=== PATIENT | female | born 1975 | race Caucasian/White ===

== ENCOUNTER → 2016-09-09 | Outpatient (CLI) | payer BC ==
[~2016-09-09] MED LIST: ACHD5005 PO; BIRTH CONTROL; CATHETER FLUSH 10 ML SYR IV PRN; CYCL10TA9 PO; D ME PO; DIPH25TA31 PO; ETON1VAG VG; HYDR-3714 PO; HYDR-3729 PO; IOHEXOL 350 MG/ML 100 ML (OMNIPAQUE 350) VIAL IV ONE; LEVO750T9 PO; METR500T PO; NAPR550T PO; NS 100 ML (IVPB) BAG IV ONE
--- NOTE | 2016-09-09 14:40 | Diagnostic Imaging Report ---
PROCEDURE: CT abdomen and pelvis with contrast. TECHNIQUE: Multiple contiguous axial images were obtained through the abdomen and pelvis after administration of intravenous contrast. INDICATION: Recurrent abdominal wall abscess. COMPARISON: Exam compared to 05/05/2016. FINDINGS: Previous percutaneous drainage catheter has been removed. Along its tract, there is some fluid extending to approach the skin surface AP depth of 4.8 cm with maximal transverse dimensions of 2.7 cm. Abscess could not be excluded. There is some adjacent subcutaneous edema. The rectus sheath components just deep to the collection appear slightly thickened but without obvious fluid. There are chronic or recurrent inflammatory changes adjacent to right lower quadrant bowel loops but this itself is improved from the prior study. There is no evidence for a bowel obstruction and no intraperitoneal or retroperitoneal abscess. Liver, spleen, adrenals, and pancreas are unremarkable. The unobstructed kidneys are normal. Uterus, adnexa, and urinary bladder are normal. IMPRESSION: Recurrence of fluid collection within the subcutaneous fat superficially, approaching the skin surface. Given the adjacent edema, abscess could not be excluded. This is along the course of the previously placed drainage catheter having been removed in the interval. The right lower quadrant intraperitoneal contents revealed improvements in regional inflammatory change. No intraperitoneal or retroperitoneal fluid collection. No bowel, biliary, or urinary tract obstruction. Dictated by: Dictated on workstation # [id number]
== END ==
LOC: RAD 12:02
PROVIDERS: ATTEND Internal Medicine
DX: L02.211 Cutaneous abscess of abdominal wall (principal); K50.914 Crohn's disease, unspecified, with abscess
CPT/HCPCS: 74177

== ENCOUNTER → 2017-04-27 | Outpatient (CLI) | payer BC ==
[~2017-04-27] MED LIST changes: -CATHETER FLUSH 10 ML SYR IV PRN; -IOHEXOL 350 MG/ML 100 ML (OMNIPAQUE 350) VIAL IV ONE; -NS 100 ML (IVPB) BAG IV ONE
--- NOTE | 2017-04-28 17:39 | Diagnostic Imaging Report ---
EXAMINATION: Bilateral digital screening mammogram with CAD. The current study was also evaluated with a Computer Aided Detection (CAD) system. INDICATION: Screening. No current complaints stated on the questionnaire. COMPARISON: 12/15/15. FINDINGS: The breasts are composed of heterogeneously dense parenchyma which may decrease mammographic sensitivity. No mass, architectural distortion or suspicious calcification is seen. Allowing for technique and positional differences, no suspicious change is seen. IMPRESSION: No significant change. ACR BI-RADS Category 2: Benign findings. Result letter will be mailed to the patient. Note: At least 10% of breast cancer is not imaged by mammography. Dictated by: Dictated on workstation # [id number]
== END ==
LOC: RAD 10:08
PROVIDERS: ATTEND Nurse Practitioner
DX: Z12.31 Encounter for screening mammogram for malignant neoplasm of breast (principal)
CPT/HCPCS: 77067

== ENCOUNTER → 2018-03-17 | Outpatient (CLI) | payer BC ==
--- NOTE | 2018-03-20 09:53 | Diagnostic Imaging Report ---
INDICATION: Routine screening. COMPARISON: 04/27/2017 and 11/28/2015. TECHNIQUE: 2D and 3D bilateral screening mammography was performed with CAD. FINDINGS: Scattered fibroglandular densities are identified bilaterally. The parenchymal pattern is stable. No mass or malignant appearing microcalcifications are seen. The axillae are unremarkable. IMPRESSION: No mammographic features suspicious for malignancy are identified. ACR BI-RADS Category 1: Negative. Result letter will be mailed to the patient. Note: At least 10% of breast cancer is not imaged by mammography. Dictated by: Dictated on workstation # [id number]
== END ==
LOC: RAD 15:51
PROVIDERS: ATTEND Nurse Practitioner
DX: Z12.31 Encounter for screening mammogram for malignant neoplasm of breast (principal)
CPT/HCPCS: 77067

== ENCOUNTER → 2019-04-06 | Outpatient (CLI) | payer BC ==
--- NOTE | 2019-04-09 09:28 | Diagnostic Imaging Report ---
INDICATION: Routine screening. COMPARISON: 03/17/2018 and 04/27/2017. TECHNIQUE: 2D and 3D bilateral screening mammography was performed with CAD. FINDINGS: Scattered fibroglandular densities are identified bilaterally. The parenchymal pattern is stable. No mass or malignant appearing microcalcifications are seen. The axillae are unremarkable. IMPRESSION: No mammographic features suspicious for malignancy are identified. ACR BI-RADS Category 1: Negative. Result letter will be mailed to the patient. Note: At least 10% of breast cancer is not imaged by mammography. Dictated by: Dictated on workstation # [id number]
== END ==
LOC: RAD 15:20
PROVIDERS: ATTEND Obstetrics & Gynecology
DX: Z12.31 Encounter for screening mammogram for malignant neoplasm of breast (principal)
CPT/HCPCS: 77067

== ENCOUNTER 2019-08-11 09:20 | Emergency (ER) | payer BC ==
[~2019-08-11] VITALS: Ht 162 cm; Wt 8.0 kg
[2019-08-11] MEDS ORDERED: HUMERA (09:47)
[2019-08-11 09:48] LABS: BASOPHILS % (AUTO) 1 % (0-10); EOSINOPHILS # (AUTO) 0.3 10^3/uL (0.0-0.3); EOSINOPHILS % (AUTO) 4 % (0-10); HEMATOCRIT 35 % (35-52); HEMOGLOBIN 11.8 G/DL (11.5-16.0); LYMPHOCYTES # (AUTO) 2.4 X 10^3 (1.0-4.0); LYMPHOCYTES % (AUTO) 33 % (12-44); MEAN CORPUSCULAR HEMOGLOBIN 30 PG (25-34); MEAN CORPUSCULAR HGB CONC 33 G/DL (32-36); MEAN CORPUSCULAR VOLUME 89 FL (80-99); MEAN PLATELET VOLUME 11.9 FL (7.4-10.4); MONOCYTES # (AUTO) 0.5 X 10^3 (0.0-1.0); MONOCYTES % (AUTO) 8 % (0-12); NEUTROPHILS % (AUTO) 55 % (42-75); PLATELET COUNT 282 10^3/uL (130-400); WHITE BLOOD COUNT 7.2 10^3/uL (4.3-11.0)
[2019-08-11 09:49] LABS: BILIRUBIN,URINE NEGATIVE (NEGATIVE); CLARITY,URINE CLOUDY; COLOR,URINE RED; GLUCOSE, URINE (UA) NEGATIVE (NEGATIVE); KETONES,URINE NEGATIVE (NEGATIVE); LEUKOCYTE ESTERASE ,URINE NEGATIVE (NEGATIVE); NITRITE,URINE NEGATIVE (NEGATIVE); PROTEIN,URINE 2+ (NEGATIVE)
[2019-08-11 09:55] LABS: INR 0.9 (0.8-1.4); PROTHROMBIN TIME PATIENT 12.5 SEC (12.2-14.7)
[2019-08-11 09:59] LABS: ALANINE AMINOTRANSFERASE 29 U/L (0-55); ALBUMIN 4.1 GM/DL (3.2-4.5); ALKALINE PHOSPHATASE 62 U/L (40-136); BILIRUBIN,TOTAL 0.4 MG/DL (0.1-1.0); BUN/CREATININE RATIO 15; CALCIUM 8.9 MG/DL (8.5-10.1); CARBON DIOXIDE 19 MMOL/L (21-32); CHLORIDE 108 MMOL/L (98-107); GFR ESTIMATED > 60; GLUCOSE 116 MG/DL (70-105); POTASSIUM 4.2 MMOL/L (3.6-5.0); SODIUM 140 MMOL/L (135-145)
[2019-08-11 10:14] LABS: BACTERIA,URINE NEGATIVE /HPF; RBC,URINE TNTC /HPF
--- NOTE | 2019-08-11 10:15 | ED GU-Female ---
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 WAS INSTRUCTED TO TAKE OUT NUVA RING ON TUESDAY BY DR DE LEON. Nursing Sepsis Screen: No Definite Risk Source: patient Exam Limitations: no limitations History of Present Illness Date Seen by Provider: Aug 11, 2019 Time Seen by Provider: 09:35 Initial Comments Patient resents to ER by private conveyance with her and chief complaint for the past 2 weeks she's been having some vaginal bleeding progressively worsening now the last several days she's been having heavy bleeding with large clots and for the past 24 hours she is been going through a super tampon and pad 4 to 5 times overnight and this morning once every hour. She is on Humira for Crohn's. She denies dysuria. She's never had an STD. She had lab on showing a hemoglobin of 11.7. No recent history of anemia, blood clots or blood thinners. She felt some pressure in her right ear. No fevers chills nausea v omiting. She has an appointment on with Dr. De Leon, gynecology to work this up. She took her NuvaRing out about 2 days ago. She is a long- standing monogamous relationship and declines STD testing. Last intercourse was 3 weeks ago. Allergies and Home Medications Allergies Coded Allergies: amoxicillin (Unverified Allergy, Intermediate, 01/21/14) Penicillins (Unverified Allergy, Unknown, 09/27/14) Home Medications Etonogestrel/Ethinyl Estradiol 1 Each Vag.ring, 1 VAG RING VG MONTHLY, (Reported) Medroxyprogesterone Acetate 10 Mg Tablet, 10 MG PO DAILY Prescribed by: KINZA HERNANDEZ on 08/11/19 1104 Patient Home Medication List Home Medication List Reviewed: Yes Review of Systems Review of Systems Constitutional: No chills, No fever, No malaise EENTM: No ear discharge, No ear pain Respiratory: No cough, No short of breath, No wheezing Cardiovascular: No chest pain, No Hx of Intervention, No palpitations Gastrointestinal: No abdominal pain, No constipation, No nausea, No vomiting Genitourinary: see HPI Musculoskeletal: No back pain, No joint pain Hematologic/Lymphatic: Denies Anemia, Denies Blood Clots All Other Systemes Reviewed Negative Unless Noted: Yes Past Bhcpiqs-Dxpjpe-Rmgsfb Hx Patient Social History Alcohol Use: Rarely Uses Number of Drinks Today: II Alcohol Beverage of Choice: Other Recreational Drug Use: No Smoking Status: Never a Smoker Recent Foreign Travel: No Contact w/Someone Who Travel: No Recent Infectious Disease Expo: No Recent Hopitalizations: No Physical Abuse: No Sexual Abuse: No Immunizations Up To Date Tetanus Booster (TDap): More than 5yrs PED Vaccines UTD: Yes Seasonal Allergies Seasonal Allergies: Yes Past Medical History Surgeries: Yes Gallbladder Respiratory: No Currently Using CPAP: No Currently Using BIPAP: No Cardiac: No Neurological: No Reproductive Disorders: No Female Reproductive Disorders: Denies Sexually Transmitted Disease: No HIV/AIDS: No Gastrointestinal: Yes Gall Bladder Disease, Irritable Bowel Musculoskeletal: Yes (BACK PAIN- SEE CHIROPRACTOR) Endocrine: No Cancer: No Psychosocial: No Integumentary: No Blood Disorders: No (HX OF ANEMIA WHEN YOUNGER) Family Medical History Alcoholism 19 FATHER PATERNAL GRANDFATHER PATERNAL GRANDMOTHER MATERNAL GRANDFATHER MATERNAL GRANDMOTHER 19 MOTHER Arthritis 19 MOTHER Asthma 19 MOTHER (SISTERS, ONE OF LUNG CANCER, COPD) Cardiovascular disease MATERNAL GRANDMOTHER 19 MOTHER Cataracts 19 MOTHER Completed stroke 19 FATHER Coronary thrombosis G8 BROTHER 19 MOTHER (LEG) Diabetes mellitus MATERNAL GRANDMOTHER Drug abuse 19 FATHER G8 BROTHER G8 BROTHER 19 MOTHER Gastroenteritis 19 FATHER (CHRON'S ) Hypercholesterolemia 19 MOTHER Hypertension MATERNAL GRANDMOTHER Myocardial infarction MATERNAL GRANDMOTHER 19 MOTHER Prostate cancer Psychosocial problem MATERNAL GRANDMOTHER 19 MOTHER (HER BROTHER) Respiratory disorder 19 MOTHER Thyroid disease 19 MOTHER Tuberculosis 19 MOTHER Physical Exam Vital Signs Vital Signs - First Documented 08/11/19 09:25 Temp 36.9 Pulse 99 Resp 18 B/P (MAP) 144/93 (110) Pulse Ox 98 Capillary Refill : Less Than 3 Seconds Height, Weight, BMI Height: 5'4.00" Weight: 179lbs. 3.0oz. 81.341515fh; 3.00 BMI Method:Stated General Appearance: WD/WN, no apparent distress HEENT: PERRL/EOMI, pharynx normal, TM abnormal (R) (bilateral tympanic membranes with clear effusion and mild bulging but no erythema or injection.), TM abnormal (L) Neck: non-tender, full range of motion, supple, normal inspection Cardiovascular: normal peripheral pulses, regular rate, rhythm Respiratory: no respiratory distress, no accessory muscle use Gastrointestinal: normal bowel sounds, non tender, soft Neurologic/Psychiatric: alert, normal mood/affect, oriented x 3 Skin: normal color, warm/dry Progress/Results/Core Measures Suspected Sepsis Recent Fever Within 48 Hours: No Infection Criteria Present: None New/Unexplained Altered Menta: No Sepsis Screen: No Definite Risk SIRS Temperature: Pulse: 99 Respiratory Rate: 18 Laboratory Tests 08/11/19 09:30: White Blood Count 7.2 Blood Pressure 144 /93 Mean: 110 Laboratory Tests 08/11/19 09:30: Creatinine 0.80, INR Comment 0.9, Platelet Count 282, Total Bilirubin 0.4 Results/Orders Lab Results Laboratory Tests Test 08/11/19 09:30 Range/Units White Blood Count 7.2 4.3-11.0 10^3/uL Red Blood Count 3.99 L 4.35-5.85 10^6/uL Hemoglobin 11.8 11.5-16.0 G/DL Hematocrit 35 35-52 % Mean Corpuscular Volume 89 80-99 FL Mean Corpuscular Hemoglobin 30 25-34 PG Mean Corpuscular Hemoglobin Concent 33 32-36 G/DL Red Cell Distribution Width 13.0 10.0-14.5 % Platelet Count 282 130-400 10^3/uL Mean Platelet Volume 11.9 H 7.4-10.4 FL Neutrophils (%) (Auto) 55 42-75 % Lymphocytes (%) (Auto) 33 12-44 % Monocytes (%) (Auto) 8 0-12 % Eosinophils (%) (Auto) 4 0-10 % Basophils (%) (Auto) 1 0-10 % Neutrophils # (Auto) 4.0 1.8-7.8 X 10^3 Lymphocytes # (Auto) 2.4 1.0-4.0 X 10^3 Monocytes # (Auto) 0.5 0.0-1.0 X 10^3 Eosinophils # (Auto) 0.3 0.0-0.3 10^3/uL Basophils # (Auto) 0.0 0.0-0.1 10^3/uL Prothrombin Time 12.5 12.2-14.7 SEC INR Comment 0.9 0.8-1.4 Activated Partial Thromboplast Time 24 24-35 SEC Urine Color RED H Urine Clarity CLOUDY Urine pH 5.0 5-9 Urine Specific [place] >=1.030 1.016-1.022 Urine Protein 2+ H NEGATIVE Urine Glucose (UA) NEGATIVE NEGATIVE Urine Ketones NEGATIVE NEGATIVE Urine Nitrite NEGATIVE NEGATIVE Urine Bilirubin NEGATIVE NEGATIVE Urine Urobilinogen 0.2 < = 1.0 MG/DL Urine Leukocyte Esterase NEGATIVE NEGATIVE Urine RBC (Auto) 3+ H NEGATIVE Urine RBC TNTC H /HPF Urine WBC NONE /HPF Urine Crystals NONE /LPF Urine Bacteria NEGATIVE /HPF Urine Casts NONE /LPF Urine Mucus NEGATIVE /LPF Urine Culture Indicated NO Sodium Level 140 135-145 MMOL/L Potassium Level 4.2 3.6-5.0 MMOL/L Chloride Level 108 H 98-107 MMOL/L Carbon Dioxide Level 19 L 21-32 MMOL/L Anion Gap 13 5-14 MMOL/L Blood Urea Nitrogen 12 7-18 MG/DL Creatinine 0.80 0.60-1.30 MG/DL Estimat Glomerular Filtration Rate > 60 BUN/Creatinine Ratio 15 Glucose Level 116 H 70-105 MG/DL Calcium Level 8.9 8.5-10.1 MG/DL Corrected Calcium 8.8 8.5-10.1 MG/DL Total Bilirubin 0.4 0.1-1.0 MG/DL Aspartate Amino Transf (AST/SGOT) 30 5-34 U/L Alanine Aminotransferase (ALT/SGPT) 29 0-55 U/L Alkaline Phosphatase 62 40-136 U/L Total Protein 7.0 6.4-8.2 GM/DL Albumin 4.1 3.2-4.5 GM/DL My Orders Orders - KINZA HERNANDEZ Ua Culture If Indicated (08/11/19 09:24) Urine Bedside (08/11/19 09:24) Cbc With Automated Diff (08/11/19 09:41) Comprehensive Metabolic Panel (08/11/19 09:41) Protime With Inr (08/11/19 09:41) Partial Thromboplastin Time (08/11/19 09:41) Vital Signs/I&O 08/11/19 09:25 Temp 36.9 Pulse 99 Resp 18 B/P (MAP) 144/93 (110) Pulse Ox 98 Capillary Refill : Less Than 3 Seconds Blood Pressure Mean: 110 Progress Note : Time: 10:55 Progress Note The patient has declined STD testing. Given her risk factors being low that would be fine. Plan consultation with transition manager OB and we'll give a dose of Depo- Provera if we have it. If not we will give her a prescription and she can self administer or we have her come back if the ER administer it. Ultrasound is not necessary or available today. Consults Consults : Consulting Physician: GRAHAM TORRES DO Consults Notes Discussed case lab findings and he recommends a shot of Depo-Provera and put her on Provera pills 10 mg daily until she sees Dr. De Leon. Departure Impression Primary Impression: Vaginal bleeding, abnormal Additional Impression: Acute serous otitis media of both ears without rupture Disposition: HOME, SELF-CARE Condition: Stable Departure-Patient Inst. Decision time for Depature: 10:56 Referrals: CYNDY CARR MD (PCP/Family) Primary Care Physician KENNY DE LEON DO Patient Instructions: IRREGULAR VAGINAL BLEEDING, Serous Otitis Media Add. Discharge Instructions: Provera 10 mg tablets once daily until you see Dr. De Leon. Return to the ER if you're having chest pain or shortness of breath. Avoid NSAIDs such as ibuprofen, naproxen, Aleve. Keep follow-up appointment with Dr. De Leon. All discharge instructions reviewed with patient and/or family. Voiced understanding. Scripts Medroxyprogesterone Acetate (Depo-Provera) 150 Mg/1 Ml Syringe 150 MG IM ONCE, #1 SYRINGE 0 Refills Prov: KINZA HERNANDEZ 08/11/19 Medroxyprogesterone Acetate (Provera) 10 Mg Tablet 10 MG PO DAILY for 14 Days, #14 TAB 0 Refills Prov: KINZA HERNANDEZ 08/11/19 Copy Copies To 1: KENNY DE LEON TITUS J Aug 11, 2019 10:15
[2019-08-11] MEDS ORDERED: MEDR10TA PO (11:04)
[2019-08-11] MEDS ORDERED: MEDR150D8 IM (11:11)
[2019-08-11 11:19] VITALS: BP 144/93
== END 2019-08-11 11:19 | disposition home or self-care (01) ==
LOC: EDUNIT# 09:20 → ER 09:21
DX: N93.9 Abnormal uterine and vaginal bleeding, unspecified (principal); H65.03 Acute serous otitis media, bilateral; K58.9 Irritable bowel syndrome, unspecified; D64.9 Anemia, unspecified; Z88.0 Allergy status to penicillin; Z79.52 Long term (current) use of systemic steroids; Z82.49 Family history of ischemic heart disease and other diseases of the circulatory system; Z80.42 Family history of malignant neoplasm of prostate
CPT/HCPCS: 36415; 80053; 81000; 84703; 85025; 85610; 85730

== ENCOUNTER → 2019-08-20 | Outpatient (CLI) | payer BC ==
[~2019-08-20] MED LIST changes: +HUMERA; +MEDR10TA PO; +MEDR150D8 IM
--- NOTE | 2019-08-20 17:38 | Diagnostic Imaging Report ---
PROCEDURE: US Non-ob pelvis comp/trans. TECHNIQUE: Multiple realtime grayscale images were obtained of the pelvis in various projections endovaginally. Transabdominal and color Doppler imaging was also utilized. Transabdominal imaging was also performed. INDICATION: Dysfunctional uterine bleeding. COMPARISON: None available. FINDINGS: The uterus measures 7.7 x 4.3 x 3.3 cm. The myometrium is normal in echogenicity without discrete mass. The endometrium measures up to 0.6 cm where visualized, and is normal in echogenicity. Trace simple-appearing fluid is present within the endometrial canal at the level of the mid uterine body. The right ovary measures 2.7 x 1.7 x 2.3 cm. The left ovary measures 2.3 x 2.5 x 2.0 cm. Both ovaries are physiologic in appearance. Blood flow is seen in both ovaries on color doppler imaging. No suspicious adnexal mass or fluid collection. No free pelvic fluid. IMPRESSION: 1. Normal endometrial thickness measuring 0.6 cm. Trace fluid within the endometrial canal may relate to patient's reported bleeding. 2. No fibroid or other myometrial mass. 3. Physiologic appearance of the ovaries. Dictated by: Dictated on workstation # [id number]
== END ==
LOC: RAD 14:51
PROVIDERS: ATTEND Obstetrics & Gynecology
DX: N93.8 Other specified abnormal uterine and vaginal bleeding (principal)
CPT/HCPCS: 76830; 76856

== ENCOUNTER 2019-09-04 05:50 | Outpatient (CLI) | payer BC ==
[~2019-09-04] VITALS: Ht 162 cm; Wt 85.4 kg
[2019-09-04] MEDS ORDERED: MULT1CAP27 PO (13:34)
[2019-09-04] MEDS ORDERED: LORA10TA7 PO (13:35)
== END 2019-09-04 13:52 | disposition home or self-care (01) ==
LOC: PREOP 05:50
PROVIDERS: ATTEND Obstetrics & Gynecology
DX: Z01.818 Encounter for other preprocedural examination (principal)

== ENCOUNTER 2019-09-11 08:32 | Day surgery (SDC) | payer BC ==
[2019-09-11] VITALS (11 sets, daily range): BP systolic 92–118; BP diastolic 63–84
[~2019-09-11] VITALS: Ht 162 cm; Wt 85.4 kg
[~2019-09-11 08:32] MED LIST changes: +LORA10TA7 PO; +MULT1CAP27 PO
[2019-09-11] MEDS ORDERED: LACTATED RINGERS 1,000 ML IV PRN (08:57)
[2019-09-11] MEDS ORDERED: metroNIDAZOLE 500MG/100ML IVPB 100 ML IV ONE (09:00)
[2019-09-11] MEDS ORDERED: ceFAZolin INJECTION 1,000 MG in WATER (STERILE) FOR INJECTION 10 ML IV ONE (09:00)
[2019-09-11] MEDS ORDERED: ONDANSETRON 4 MG/2 ML (SDV) Z0FRAN ONE ×2 (09:04→09:36)
[2019-09-11] MEDS ORDERED: DEXAMETHASONE 10 MG/ML (DECADRON) 1 ML VIAL ONE (09:04)
[2019-09-11] MEDS ORDERED: SEVOFLURANE (ULTANE) 15 ML INHAL SOLN ONE (09:04)
[2019-09-11] MEDS ORDERED: LIDOCAINE PF 2% 5 ML (XYLOCAINE) VIAL ONE (09:04)
[2019-09-11] MEDS ORDERED: proPOfol 200 MG/20 ML (DIPRIVAN) VIAL IV ONE ×2 (09:04→10:35)
[2019-09-11] MEDS ORDERED: MIDAZOLAM 2 MG/2 ML (VERSED) VIAL ONE (09:05)
[2019-09-11] MEDS ORDERED: fentaNYL INJECTION 100 MCG/2 ML AMP ONE (09:05)
[2019-09-11] MEDS ORDERED: SCOPOLAMINE 1.5 MG (TRANSDERM-SCOP) PATCH ONE (09:36)
[2019-09-11] MEDS ORDERED: FAMOTIDINE 20MG/2ML IV (PEPCID) ONE (09:36)
[2019-09-11] MEDS ORDERED: FAMOTIDINE 20MG/2ML IV (PEPCID) IV ONE (09:45)
[2019-09-11] MEDS ORDERED: SCOPOLAMINE 1.5 MG (TRANSDERM-SCOP) PATCH TOP ONE (09:45)
[2019-09-11] MEDS ORDERED: ONDANSETRON 4 MG/2 ML (SDV) Z0FRAN IV ONE (09:45)
--- NOTE | 2019-09-11 10:13 | Progress Note-Pre Operative ---
Pre-Operative Progress Note H&P Reviewed The H&P was reviewed, patient examined and no changes noted. Date Seen by Provider: Sep 11, 2019 Time Seen by Provider: 09:50 Date H&P Reviewed: Sep 11, 2019 Time H&P Reviewed: 09:45 Pre-Operative Diagnosis: thickened endometrium, menorrhagia KENNY DE LEON DO Sep 11, 2019 10:13
[2019-09-11] MEDS ORDERED: ROCURONIUM 10 MG/ML 5 ML SYRINGE IV ONE (10:35)
[2019-09-11] MEDS ORDERED: NEOSTIGMINE 3 MG/3 ML VIAL ONE (10:42)
[2019-09-11] MEDS ORDERED: KETOROLAC 30 MG/ML VIAL ONE (10:42)
[2019-09-11] MEDS ORDERED: GLYCOPYRROLATE 0.2 MG/ML (ROBINUL) 2 ML VIAL ONE (10:42)
[2019-09-11] MEDS ORDERED: D5 LR IV SOLUTION 1,000 ML IV SCH (10:55)
[2019-09-11] MEDS ORDERED: KETOROLAC 30 MG/ML VIAL IVP ONE (11:00)
[2019-09-11] MEDS ORDERED: ACETAMINOPHEN 500 MG TAB (TYLENOL) PO PRN (11:00)
[2019-09-11] MEDS ORDERED: ONDANSETRON 4 MG/2 ML (SDV) Z0FRAN IVP PRN ×2 (11:00)
[2019-09-11] MEDS ORDERED: HYDROmorphone 2 MG/ML VIAL (DILAUDID) IV ONE (11:00)
--- NOTE | 2019-09-11 11:00 | Operative Report ---
Operative Report Date of Procedure/Surgery Sep 11, 2019 Surgeon (s) KENNY DE LEON DO Marine Underwriter (s): NA Post-Operative Diagnosis intrauterine synechiae menorrhagia no evidence of uterine perforation Procedure Performed Hysteroscopy, Nila endometrial ablation diagnostic laparoscopy Description of Procedure Anesthesia Type: General Estimated blood loss (mL): minimal Specimen(s) collected/removed NA Findings of the Procedure proliferative appearing endometrium, uterus approximately 5.5 cm in length After ablation, appeared to see adhesions at the fundus that were not noted before. However, there was good distention of the uterus. Despite this, there seemed to be more fluid deficit than accounted for, so a diagnostic laparoscopy was done. Upon laparoscopy, there was not excessive fluid in the pelvis (appeared physiologic) and there was not a perforation in the uterus. There was a spot at the fundus that appeared to be bruised but not perforated. normal uterus with normal tubes and ovaries. Allergies and Home Medications Allergies Coded Allergies: amoxicillin (Unverified Allergy, Intermediate, 01/21/14) Penicillins (Unverified Allergy, Unknown, UNSURE OF RECTION, 09/04/19) Home Medications Loratadine 10 Mg Tablet, 10 MG PO DAILY, (Reported) Multivitamin 1 Each Capsule, 1 EACH PO DAILY, (Reported) KENNY DE LEON DO Sep 11, 2019 11:00
[2019-09-11] MEDS ORDERED: IBUPROFEN 600 MG (MOTRIN) TAB PO SCH (12:00)
[2019-09-11] MEDS ORDERED: IBUP-844 PO (12:48)
[2019-09-11] MEDS ORDERED: ACET-93 PO (12:48)
[2019-09-11] MEDS ORDERED: OXC5T PO (12:48)
--- NOTE | 2019-09-11 12:50 | Discharge Inst-Women's Service ---
Discharge Inst-Women's Serv Depart Medication/Instructions New, Converted or Re-Newed RX: RX on Chart Final Diagnosis menorrhagia intrauterine synechiae Consults/Follow Up Additional Follow Up: Yes ([address] Cobian) Activity Activity: Activity as Tolerated Driving Instructions: No Driving for 24 Hours NO SMOKING: NO SMOKING Nothing Inside Vagina: No Douching, No Kline, No Tampons Diet Discharge Diet: Eat Small Frequent Meals Symptoms to Report to : Bleeding Excessive, Pain Increased, Fever Over 101 Degrees F, Vaginal Bleeding Increase, Cramps in Feet or Legs, Vaginal Discharge Foul For Any Problems or Questions: Contact Your Physician Skin/Wound Care Infection Signs and Symptoms: Increased Redness, Foul Odor of Wound, Increased Drainage, Skin Itchy or Has a Rash, Increased Swelling, Temperature Above 101 F Operative Area Clean and Dry: Keep Incision Clean/Dry Stitches/Rj/Dermabond: Dermabond Bathing Instructions: KENNY Bai DO Sep 11, 2019 12:49
--- NOTE | 2019-09-11 13:30 | NUR ---
PATIENT UP TO BATHROOM AND VOMITED AT THIS TIME WITH SOME NAUSEA, THIS RN TO GIVE ZOFRAN 4MG IV. 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
--- NOTE | 2019-09-12 07:07 | Anesthesia-General Post-Op ---
General Patient Condition Mental Status/LOC: Same as Preop Cardiovascular: Satisfactory Nausea/Vomiting: Absent Respiratory: Satisfactory Pain: Controlled Complications: Absent Post Op Complications Complications None Follow Up Care/Instructions Patient Instructions None needed. Anesthesia/Patient Condition Patient Condition Patient is doing well, no complaints, stable vital signs, no apparent adverse anesthesia problems. No complications reported per nursing. D/C home per [facility] [place] Criteria: Yes TOMMY GONG CRNA Sep 12, 2019 07:07
== END 2019-09-11 14:15 | disposition home or self-care (01) ==
LOC: SDC 08:32
PROVIDERS: ATTEND Obstetrics & Gynecology
DX: N85.6 Intrauterine synechiae (principal); N92.0 Excessive and frequent menstruation with regular cycle; Z88.0 Allergy status to penicillin; Z88.1 Allergy status to other antibiotic agents; Z82.5 Family history of asthma and other chronic lower respiratory diseases; Z83.3 Family history of diabetes mellitus; Z82.49 Family history of ischemic heart disease and other diseases of the circulatory system; Z90.49 Acquired absence of other specified parts of digestive tract
CPT/HCPCS: 84703; 87081; 94664

== ENCOUNTER → 2020-06-23 | Outpatient (CLI) | payer BC ==
[~2020-06-23] MED LIST changes: +ACET-93 PO; +IBUP-844 PO; +OXC5T PO
--- NOTE | 2020-06-23 11:00 | Diagnostic Imaging Report ---
EXAMINATION: Bilateral mammograms. INDICATION: Screening. COMPARISON: 04/06/2019, 03/17/2018, and 04/27/2017. TECHNIQUE: Screening digital mammography was performed bilaterally with a Computer Aided Detection (CAD) system. FINDINGS: There are scattered fibroglandular densities bilaterally. There are a few benign type calcifications. There is no dominant mass, spiculated lesion, or suspicious calcification identified. The skin, nipples, and axillae are unremarkable. IMPRESSION: Benign findings as above. ACR BI-RADS Category 2: Benign findings. Result letter will be mailed to the patient. Note: At least 10% of breast cancer is not imaged by mammography. Dictated by: Dictated on workstation # [id number]
== END ==
LOC: RAD 09:09
PROVIDERS: ATTEND Family Medicine
DX: Z12.31 Encounter for screening mammogram for malignant neoplasm of breast (principal)
CPT/HCPCS: 77063; 77067

== ENCOUNTER → 2021-06-01 | Outpatient (CLI) | payer BC ==
[~2021-06-01] MED LIST changes: +ACETAMINOPHEN 500 MG TAB (TYLENOL) PO PRN; +CASIRIVIMAB/IMDEVIMAB 1,200 MG in NS (IVPB) 250 ML IV ONE; +EPINEPHrine INJECTION 1 MG/ML AMP IM PRN; +ONDANSETRON 4 MG/2 ML (SDV) Z0FRAN IV PRN; +diphenhydrAMINE 50 MG/ML INJ (BENADRYL) IV PRN
[2021-06-01 12:47] VITALS: BP 140/98
[2021-06-01 14:19] VITALS: BP 157/98
== END ==
LOC: INFUSION 12:35
PROVIDERS: ATTEND Nurse Practitioner Family
DX: U07.1 COVID-19 (principal)

== ENCOUNTER → 2021-06-24 | Outpatient (CLI) | payer BC ==
[~2021-06-24] MED LIST changes: -ACETAMINOPHEN 500 MG TAB (TYLENOL) PO PRN; -CASIRIVIMAB/IMDEVIMAB 1,200 MG in NS (IVPB) 250 ML IV ONE; -EPINEPHrine INJECTION 1 MG/ML AMP IM PRN; -ONDANSETRON 4 MG/2 ML (SDV) Z0FRAN IV PRN; -diphenhydrAMINE 50 MG/ML INJ (BENADRYL) IV PRN
--- NOTE | 2021-06-24 12:29 | Diagnostic Imaging Report ---
INDICATION: Routine screening. COMPARISON: 06/23/2020 and 04/06/2019. TECHNIQUE: 2D and 3D bilateral screening mammography was performed with CAD. FINDINGS: Scattered fibroglandular densities are identified bilaterally. The parenchymal pattern appears stable. No mass or malignant-appearing microcalcifications are seen. The axillae are unremarkable. IMPRESSION: No mammographic features suspicious for malignancy are identified. ACR BI-RADS Category 1: Negative. Result letter will be mailed to the patient. Note: At least 10% of breast cancer is not imaged by mammography. Dictated by: Dictated on workstation # [id number]
== END ==
LOC: RAD 10:45
PROVIDERS: ATTEND Obstetrics & Gynecology
DX: Z12.31 Encounter for screening mammogram for malignant neoplasm of breast (principal)
CPT/HCPCS: 77063; 77067

== ENCOUNTER → 2022-06-25 | Outpatient (CLI) | payer BC ==
--- NOTE | 2022-06-28 12:33 | Diagnostic Imaging Report ---
INDICATION: Routine screening. COMPARISON: 06/24/2021 and 06/23/2020. TECHNIQUE: 2D and 3D bilateral screening mammography was performed with CAD. FINDINGS: Both breasts are heterogeneously dense, limiting the sensitivity of mammography. There are benign calcifications throughout both breasts. No mass or malignant-appearing microcalcifications are seen. The axillae are unremarkable. IMPRESSION: No mammographic features suspicious for malignancy are identified. ACR BI-RADS Category 2: Benign findings. Result letter will be mailed to the patient. Note: At least 10% of breast cancer is not imaged by mammography. Dictated on workstation # [id number]
== END ==
LOC: RAD 11:15
PROVIDERS: ATTEND Family Medicine
DX: Z12.31 Encounter for screening mammogram for malignant neoplasm of breast (principal)
CPT/HCPCS: 77063; 77067

== ENCOUNTER → 2022-10-26 | Outpatient (CLI) | payer BC ==
[2022-10-26 18:20] LABS: BASOPHILS # (AUTO) 0.1 10^3/uL (0.0-0.1); BASOPHILS % (AUTO) 1 % (0-10); EOSINOPHILS # (AUTO) 0.3 10^3/uL (0.0-0.3); EOSINOPHILS % (AUTO) 3 % (0-10); HEMATOCRIT 44 % (35-52); HEMOGLOBIN 15.1 g/dL (11.5-16.0); LYMPHOCYTES # (AUTO) 3.3 10^3/uL (1.0-4.0); LYMPHOCYTES % (AUTO) 35 % (12-44); MEAN CORPUSCULAR HEMOGLOBIN 30 pg (25-34); MEAN CORPUSCULAR HGB CONC 35 g/dL (32-36); MEAN CORPUSCULAR VOLUME 86 fL (80-99); MEAN PLATELET VOLUME 11.3 fL (9.0-12.2); MONOCYTES # (AUTO) 0.5 10^3/uL (0.0-1.0); MONOCYTES % (AUTO) 6 % (0-12); NEUTROPHILS # (AUTO) 5.4 10^3/uL (1.8-7.8); NEUTROPHILS % (AUTO) 56 % (42-75); PLATELET COUNT 303 10^3/uL (130-400); WHITE BLOOD COUNT 9.6 10^3/uL (4.3-11.0)
--- NOTE | 2022-10-26 18:32 | Diagnostic Imaging Report ---
Indication: Chest pain. Time of Exam: 6:31 PM No prior studies are available for comparison. Findings: The heart size is normal. The pulmonary vascularity is unremarkable. The lungs are clear. No infiltrate, effusion or pneumothorax is detected. Impression: No acute cardiopulmonary process is detected. Dictated by: Dictated on workstation # [id number]
[2022-10-26 18:33] LABS: ALBUMIN 4.2 GM/DL (3.2-4.5); CHLORIDE 102 MMOL/L (98-107); SODIUM 133 MMOL/L (135-145)
[2022-10-26 18:35] LABS: CALCIUM 9.4 MG/DL (8.5-10.1)
[2022-10-26 18:36] LABS: GLUCOSE 313 MG/DL (70-105); TOTAL PROTEIN 7.6 GM/DL (6.4-8.2)
[2022-10-26 18:37] LABS: CARBON DIOXIDE 21 MMOL/L (21-32)
[2022-10-26 18:38] LABS: BILIRUBIN,TOTAL 0.5 MG/DL (0.1-1.0)
[2022-10-26 18:39] LABS: ALKALINE PHOSPHATASE 83 U/L (40-136); CREATININE SERUM 0.82 MG/DL (0.60-1.30); GFR ESTIMATED 89
[2022-10-26 18:41] LABS: BUN/CREATININE RATIO 16
[2022-10-26 18:42] LABS: ALANINE AMINOTRANSFERASE 28 U/L (0-55); CREATINE KINASE 51 U/L (29-168)
== END ==
LOC: LAB 17:48
PROVIDERS: ATTEND Nurse Practitioner Family
DX: R07.9 Chest pain, unspecified (principal)
CPT/HCPCS: 36415; 71046; 80053; 82550; 83036; 84484; 85025; 85379; 93005

== ENCOUNTER → 2023-02-05 | Outpatient (CLI) | payer BC ==
[~2023-02-05] MED LIST changes: -ETON1VAG VG; +ETON1VAG14 VG
[2023-02-05 15:58] LABS: BASOPHILS # (AUTO) 0.1 10^3/uL (0.0-0.1); BASOPHILS % (AUTO) 1 % (0-10); EOSINOPHILS # (AUTO) 0.2 10^3/uL (0.0-0.3); EOSINOPHILS % (AUTO) 2 % (0-10); HEMATOCRIT 42 % (35-52); HEMOGLOBIN 14.5 g/dL (11.5-16.0); LYMPHOCYTES # (AUTO) 2.8 X 10^3 (1.0-4.0); LYMPHOCYTES % (AUTO) 34 % (12-44); MEAN CORPUSCULAR HEMOGLOBIN 30 pg (25-34); MEAN CORPUSCULAR HGB CONC 35 g/dL (32-36); MEAN CORPUSCULAR VOLUME 87 fL (80-99); MEAN PLATELET VOLUME 11.7 fL (9.0-12.2); MONOCYTES # (AUTO) 0.4 X 10^3 (0.0-1.0); MONOCYTES % (AUTO) 5 % (0-12); NEUTROPHILS # (AUTO) 4.7 X 10^3 (1.8-7.8); NEUTROPHILS % (AUTO) 58 % (42-75); PLATELET COUNT 258 10^3/uL (130-400); WHITE BLOOD COUNT 8.1 10^3/uL (4.3-11.0)
[2023-02-05 16:08] LABS: TOTAL PROTEIN 6.8 GM/DL (6.4-8.2)
[2023-02-05 16:10] LABS: BILIRUBIN,TOTAL 0.8 MG/DL (0.1-1.0)
[2023-02-05 16:13] LABS: BILIRUBIN,DIRECT 0.3 MG/DL (0.0-0.3); BILIRUBIN,INDIRECT 0.5 MG/DL
== END ==
LOC: LAB 15:38
PROVIDERS: ATTEND Internal Medicine Gastroenterology
DX: K50.90 Crohn's disease, unspecified, without complications (principal)
CPT/HCPCS: 36415; 80076; 85025